=== PATIENT | male | born 1980 | race Caucasian/White ===

== ENCOUNTER 2021-12-20 03:28 | Emergency (ER) | payer MEDICAID ==
[~2021-12-20] VITALS: Ht 188 cm; Wt 81.8 kg
[2021-12-20] MEDS ORDERED: normal saline 1000ml 1,000 ML IV ONE (04:05)
[2021-12-20] MEDS ORDERED: clindamycin 600mg/D5W 50ml 50 ML IV ONE (04:05)
[2021-12-20] MEDS ORDERED: iohexol 300mg/ml 100ml inj. ONE (04:13)
[2021-12-20 04:30] LABS: BASOPHILS % (AUTO) 0.1 % (0-1); EOSINOPHILS # (AUTO) 0.1 X10'3 (0-0.9); EOSINOPHILS % (AUTO) 0.4 % (0-6); HEMATOCRIT 38.9 % (42.0-52.0); HEMOGLOBIN 13.4 g/dl (14.0-17.9); LYMPHOCYTES # (AUTO) 1.7 X10'3 (1.1-4.8); LYMPHOCYTES % (AUTO) 13.9 % (21-51); MEAN CORPUSCULAR HEMOGLOBIN 30.2 PG (27.0-31.0); MEAN CORPUSCULAR HGB CONC 34.5 g/dL (33.0-36.5); MEAN CORPUSCULAR VOLUME 87.6 FL (78-98); MEAN PLATELET VOLUME 7.1 FL (7.4-10.4); MONOCYTES # (AUTO) 1.2 X10'3 (0-0.9); MONOCYTES % (AUTO) 9.8 % (2-12); NEUTROPHILS # (AUTO) 9.5 X10'3 (1.8-7.7); NEUTROPHILS % (AUTO) 75.8 % (42-75); PLATELET COUNT 309 X10'3 (140-440); RED BLOOD COUNT 4.44 X10'6 (4.70-6.10); RED CELL DISTRIBUTION WIDTH 13.3 % (11.5-14.5); WHITE BLOOD COUNT 12.5 X10'3 (4.5-11.0)
[2021-12-20] MEDS ORDERED: ketorolac trometh. 30mg/ml inj. IV ONE (04:30)
[2021-12-20 04:47] LABS: ALANINE AMINOTRANSFERASE 19 U/L (12-78); ALBUMIN 3.6 G/DL (3.4-5.0); ALKALINE PHOSPHATASE 88 IU/L (46-116); ANION GAP 2 (8-16); ASPARTATE AMINO TRANSFERASE 40 U/L (10-37); BILIRUBIN,TOTAL 0.8 MG/DL (0.1-1.0); BLOOD UREA NITROGEN 10 MG/DL (7-18); BUN/CREATININE RATIO 8.1 (5.4-32.0); CHLORIDE 103 MMOL/L (99-107); CREATININE 1.23 MG/DL (0.60-1.10); GLUCOSE 130 MG/DL (70-104); MAGNESIUM 2.3 MG/DL (1.5-2.4); POTASSIUM 3.9 MMOL/L (3.5-5.1); SODIUM 135 MMOL/L (135-145); TOTAL CARBON DIOXIDE 29.6 MMOL/L (24-32); TOTAL PROTEIN 7.3 G/DL (6.4-8.2); eGFR 65 ML/MIN
[2021-12-20 05:01] LABS: CALCIUM 8.8 MG/DL (8.5-10.1)
[2021-12-20] MEDS ORDERED: CLIN-97 PO (05:43)
[2021-12-20] MEDS ORDERED: LIDOcaine 1% W/epiNEPHrine 1:100,000 20ml vial SQ ONE (07:40)
[2021-12-20] MEDS ORDERED: LIDOcaine 1% w/EPI 1:100,000 30ml vial (MDV) SQ ONE (07:43)
[2021-12-20] MEDS ORDERED: morphine 4 MG/ML inj SYRINge IV ONE (08:05)
[2021-12-20] MEDS ORDERED: ampicillin/sulbac 3gm/NS 100ml 100 ML IV SCH ×2 (08:51→14:00)
[2021-12-20 11:48] VITALS: BP 123/85
== END 2021-12-20 13:54 | disposition short-term general hospital (02) ==
LOC: ER 03:29
DX: L02.01 Cutaneous abscess of face (principal); Z20.822 Contact with and (suspected) exposure to COVID-19; L03.211 Cellulitis of face
CPT/HCPCS: 10160; 36415; 70487; 80053; 83605; 83735; 84145; 85025; 87040; 87077; 87186; 87635; 96361; 96365; 96367; 96375; 99285; C9803; J0295; J1885; J2270; J3490; J7030; Q9967